=== PATIENT | female | born 1940 | race Caucasian/White ===

== ENCOUNTER 2017-12-03 10:33 | Emergency (ER) | payer MEDICARE, BC ==
[~2017-12-03] VITALS: Ht 160 cm; Wt 88.6 kg
[2017-12-03 10:34] VITALS: BP 174/97
[2017-12-03] MEDS ORDERED: NAPR-56 PO (12:17)
[2017-12-03] MEDS ORDERED: ketorolac trometh inj. 60 MG/2 ML VIAL IM ONE (12:20)
== END 2017-12-03 12:41 | disposition home or self-care (01) ==
LOC: ER 10:34
DX: M17.11 Unilateral primary osteoarthritis, right knee (principal); M19.90 Unspecified osteoarthritis, unspecified site; Z88.2 Allergy status to sulfonamides; Z88.8 Allergy status to other drugs, medicaments and biological substances; Z88.6 Allergy status to analgesic agent; Z91.013 Allergy to seafood
CPT/HCPCS: 73564; 96372; 99284; J1885

== ENCOUNTER 2020-08-25 12:23 | Emergency (ER) | payer MEDICARE, BC ==
[~2020-08-25] VITALS: Ht 160 cm; Wt 88.6 kg
[~2020-08-25 12:23] MED LIST: APIX5TAB3 PO; ATOR20TA66 PO; LEVO125T PO; METO100T14 PO
[2020-08-25] MEDS ORDERED: ketorolac tromethamine 15mg/ml inj. IV ONE (13:00)
[2020-08-25] MEDS ORDERED: morphine 4 MG/ML inj SYRINge IV ONE (13:00)
[2020-08-25] MEDS ORDERED: ondansetron/PF 4mg/2ml inj IV ONE (13:00)
[2020-08-25 13:32] LABS: BASOPHILS % (AUTO) 0.5 % (0-1); EOSINOPHILS # (AUTO) 0.2 X10'3 (0-0.9); EOSINOPHILS % (AUTO) 2.3 % (0-6); HEMATOCRIT 36.8 % (35.0-45.0); HEMOGLOBIN 12.2 g/dl (12.0-16.0); LYMPHOCYTES # (AUTO) 1.4 X10'3 (1.1-4.8); LYMPHOCYTES % (AUTO) 17.9 % (21-51); MEAN CORPUSCULAR HGB CONC 33.2 g/dL (33.0-36.5); MEAN CORPUSCULAR VOLUME 90.5 FL (78-98); MEAN PLATELET VOLUME 8.2 FL (7.4-10.4); MONOCYTES # (AUTO) 0.4 X10'3 (0-0.9); MONOCYTES % (AUTO) 4.6 % (2-12); NEUTROPHILS % (AUTO) 74.7 % (42-75); PLATELET COUNT 241 X10'3 (140-440); RED BLOOD COUNT 4.06 X10'6 (4.20-5.60); RED CELL DISTRIBUTION WIDTH 15.1 % (11.5-14.5)
[2020-08-25 13:45] LABS: PARTIAL THROMBOPLASTIN TIME 29 SECONDS (22-32)
[2020-08-25 13:49] LABS: ALANINE AMINOTRANSFERASE 22 U/L (12-78); ALBUMIN 3.7 G/DL (3.4-5.0); ALKALINE PHOSPHATASE 63 IU/L (46-116); ANION GAP 9 (8-16); ASPARTATE AMINO TRANSFERASE 18 U/L (10-37); BILIRUBIN,TOTAL 0.4 MG/DL (0.1-1.0); BLOOD UREA NITROGEN 15 MG/DL (7-18); BUN/CREATININE RATIO 22.1 (6.6-38.0); C-REACTIVE PROTEIN 0.21 MG/DL (0.0-0.5); CALCIUM 8.7 MG/DL (8.5-10.1); CHLORIDE 102 MMOL/L (99-107); CREATININE 0.68 MG/DL (0.40-0.90); GLUCOSE 92 MG/DL (70-104); POTASSIUM 3.9 MMOL/L (3.5-5.1); SODIUM 137 MMOL/L (135-145); TOTAL CARBON DIOXIDE 25.8 MMOL/L (24-32); TOTAL PROTEIN 7.4 G/DL (6.4-8.2); eGFR 83 ML/MIN
[2020-08-25 15:31] VITALS: BP 181/66
[2020-08-25] MEDS ORDERED: DOXYCYCLINE 100MG CAPSULE PO STA (16:26)
[2020-08-25] MEDS ORDERED: CEPH250T PO (16:28)
[2020-08-25] MEDS ORDERED: DOXY100C76 PO (16:28)
[2020-08-25] MEDS ORDERED: cephalexin 250mg capsule PO ONE (16:30)
== END 2020-08-25 17:18 | disposition home or self-care (01) ==
LOC: ER 12:23
DX: M25.561 Pain in right knee (principal); M25.461 Effusion, right knee; I48.91 Unspecified atrial fibrillation; I10 Essential (primary) hypertension; M19.90 Unspecified osteoarthritis, unspecified site; Z86.718 Personal history of other venous thrombosis and embolism; Z85.9 Personal history of malignant neoplasm, unspecified; Z98.890 Other specified postprocedural states; Z88.2 Allergy status to sulfonamides; Z88.5 Allergy status to narcotic agent; Z88.8 Allergy status to other drugs, medicaments and biological substances; Z91.013 Allergy to seafood; Z79.2 Long term (current) use of antibiotics; Z79.899 Other long term (current) drug therapy
CPT/HCPCS: 20610; 36415; 73560; 80053; 85025; 85610; 85651; 85730; 86140; 93971; 96374; 96375; 99285; J1885; J2270; J2405

== ENCOUNTER 2020-08-31 12:34 | Emergency (ER) | payer MEDICARE, BC ==
[~2020-08-31] VITALS: Ht 160 cm; Wt 89.5 kg
[~2020-08-31 12:34] MED LIST changes: +CEPH250T PO; +DOXY100C76 PO
[2020-08-31 16:01] LABS: BASOPHILS # (AUTO) 0.1 X10'3 (0-0.2); BASOPHILS % (AUTO) 0.7 % (0-1); EOSINOPHILS # (AUTO) 0.2 X10'3 (0-0.9); EOSINOPHILS % (AUTO) 2.2 % (0-6); HEMATOCRIT 38.4 % (35.0-45.0); HEMOGLOBIN 12.8 g/dl (12.0-16.0); LYMPHOCYTES # (AUTO) 1.7 X10'3 (1.1-4.8); LYMPHOCYTES % (AUTO) 19.4 % (21-51); MEAN CORPUSCULAR HEMOGLOBIN 29.8 PG (27.0-31.0); MEAN CORPUSCULAR HGB CONC 33.4 g/dL (33.0-36.5); MEAN CORPUSCULAR VOLUME 89.3 FL (78-98); MEAN PLATELET VOLUME 8.1 FL (7.4-10.4); MONOCYTES # (AUTO) 0.6 X10'3 (0-0.9); MONOCYTES % (AUTO) 6.3 % (2-12); NEUTROPHILS # (AUTO) 6.5 X10'3 (1.8-7.7); NEUTROPHILS % (AUTO) 71.4 % (42-75); PLATELET COUNT 240 X10'3 (140-440); RED CELL DISTRIBUTION WIDTH 14.9 % (11.5-14.5)
[2020-08-31 16:13] LABS: ALBUMIN 3.8 G/DL (3.4-5.0); ANION GAP 6 (8-16); BLOOD UREA NITROGEN 14 MG/DL (7-18); BUN/CREATININE RATIO 18.4 (6.6-38.0); C-REACTIVE PROTEIN 0.23 MG/DL (0.0-0.5); CALCIUM 9.1 MG/DL (8.5-10.1); CHLORIDE 104 MMOL/L (99-107); CREATININE 0.76 MG/DL (0.40-0.90); GLUCOSE 88 MG/DL (70-104); SODIUM 138 MMOL/L (135-145); TOTAL CARBON DIOXIDE 28.2 MMOL/L (24-32); eGFR 73 ML/MIN
[2020-08-31 17:32] LABS: TOTAL PROTEIN,SYNOVIAL FLUID 5.6 GM/DL
[2020-08-31 17:43] LABS: GLUCOSE,SYNOVIAL FLUID 58 MG/DL
[2020-08-31 18:04] LABS: APPEARANCE,SYNOVIAL FLUID BLOODY; COLOR,SYNOVIAL FLUID RED; SYN RBC 2700000 /CU MM (0); SYN WBC 5000 /CU MM (0-200); SYNOVIAL FLUID CRYSTALS QT NO CRYSTALS SEEN
[2020-08-31] MEDS ORDERED: WALKERFR (18:09)
--- NOTE | 2020-08-31 18:53 | NUR ---
PT UP FOR DISCHARGED . ALL VSS STABLE . PT REPORTS BEING COMFORTABLE . TECHS AT BEDSIDE PLACING KNEE BRACE NO CHANGES TO PREVIOUS ASSESSMENT ASIDE FROM PAIN MANGEMENT . 04/06
[2020-08-31 19:14] VITALS: BP 142/75
[2020-08-31] MEDS ORDERED: LIDOcaine 1% W/epiNEPHrine 1:200,000 10ml vial IJ ONE (22:50)
== END 2020-08-31 19:12 | disposition home or self-care (01) ==
LOC: ER 12:34
DX: M25.561 Pain in right knee (principal); M25.461 Effusion, right knee; I48.91 Unspecified atrial fibrillation; I10 Essential (primary) hypertension; M19.90 Unspecified osteoarthritis, unspecified site; Z86.718 Personal history of other venous thrombosis and embolism; Z85.9 Personal history of malignant neoplasm, unspecified; Z98.890 Other specified postprocedural states; Z88.2 Allergy status to sulfonamides; Z88.5 Allergy status to narcotic agent; Z91.013 Allergy to seafood; Z79.2 Long term (current) use of antibiotics; Z79.899 Other long term (current) drug therapy
CPT/HCPCS: 20610; 29505; 36415; 80048; 82945; 84157; 85025; 85651; 86140; 87070; 87075; 89051; 89060; 99285

== ENCOUNTER 2021-07-30 16:18 | Emergency (ER) | payer MEDICARE, BC ==
[~2021-07-30] VITALS: Ht 160 cm; Wt 88.6 kg
[~2021-07-30 16:18] MED LIST changes: -CEPH250T PO; -DOXY100C76 PO; +WALKERFR
[2021-07-30 16:25] VITALS: BP 97/58
[2021-07-30] MEDS ORDERED: ondansetron 4mg rapidly disintigrating tab PO ONE (17:10)
[2021-07-30] MEDS ORDERED: morphine 4 MG/ML inj SYRINge IM ONE (17:10)
--- NOTE | 2021-07-30 17:17 | NUR ---
PO MED GIVEN, IM GIVEN
[2021-07-30] MEDS ORDERED: HYDR-3965 PO (19:08)
[2021-07-30] MEDS ORDERED: ONDA4TAB12 PO (19:08)
== END 2021-07-30 19:28 | disposition home or self-care (01) ==
LOC: ER 16:18
DX: S42.215A Unspecified nondisplaced fracture of surgical neck of left humerus, initial encounter for closed fracture (principal); S00.83XA Contusion of other part of head, initial encounter; I48.91 Unspecified atrial fibrillation; I10 Essential (primary) hypertension; M19.90 Unspecified osteoarthritis, unspecified site; Z86.718 Personal history of other venous thrombosis and embolism; Z85.9 Personal history of malignant neoplasm, unspecified; Z88.2 Allergy status to sulfonamides; Z88.8 Allergy status to other drugs, medicaments and biological substances; Z91.013 Allergy to seafood; Z79.899 Other long term (current) drug therapy; W01.0XXA Fall on same level from slipping, tripping and stumbling without subsequent striking against object, initial encounter; Y93.01 Activity, walking, marching and hiking; Y92.89 Other specified places as the place of occurrence of the external cause; Y99.8 Other external cause status
CPT/HCPCS: 29105; 70450; 72125; 73030; 96372; 99284; J2270

== ENCOUNTER 2021-08-19 20:58 | Emergency (ER) | payer MEDICARE, BC ==
[~2021-08-19] VITALS: Ht 160 cm; Wt 94.2 kg
[~2021-08-19 20:58] MED LIST changes: +ONDA4TAB12 PO
[2021-08-19 21:18] VITALS: BP 205/74
[2021-08-19] MEDS ORDERED: morphine 4 MG/ML inj SYRINge IM ONE (21:55)
[2021-08-19] MEDS ORDERED: ondansetron 4mg rapidly disintigrating tab PO ONE ×2 (21:55→22:50)
[2021-08-19] MEDS ORDERED: ONDA4TAB12 PO (22:49)
[2021-08-19] MEDS ORDERED: HYDR-3965 PO (22:49)
[2021-08-19] MEDS ORDERED: HYDROcodone/acetaminophen 5mg/325mg tablet PO ONE (22:50)
== END 2021-08-19 23:09 | disposition home or self-care (01) ==
LOC: ER 20:59
DX: M25.512 Pain in left shoulder (principal); I48.91 Unspecified atrial fibrillation; I10 Essential (primary) hypertension; M19.90 Unspecified osteoarthritis, unspecified site; Z86.718 Personal history of other venous thrombosis and embolism; Z85.9 Personal history of malignant neoplasm, unspecified; Z98.890 Other specified postprocedural states; Z88.2 Allergy status to sulfonamides; Z88.5 Allergy status to narcotic agent; Z88.8 Allergy status to other drugs, medicaments and biological substances; Z91.013 Allergy to seafood; Z79.899 Other long term (current) drug therapy
CPT/HCPCS: 73030; 96372; 99284; J2270

== ENCOUNTER 2023-10-18 18:52 | Emergency (ER) | payer BC, MEDICARE ==
[~2023-10-18] VITALS: Ht 157.5 cm; Wt 84.1 kg
[~2023-10-18 18:52] MED LIST changes: +ONDA-243 PO; -ONDA4TAB12 PO
[2023-10-18 19:36] LABS: HEMOGLOBIN 12.7 g/dl (12.0-16.0); MEAN CORPUSCULAR VOLUME 94.7 FL (78-98); WHITE BLOOD COUNT 5.6 X10'3 (4.5-11.0)
[2023-10-18 19:37] LABS: BASOPHILS % (AUTO) 0.6 % (0-1); EOSINOPHILS # (AUTO) 0.2 X10'3 (0-0.9); EOSINOPHILS % (AUTO) 4.3 % (0-6); HEMATOCRIT 37.6 % (35.0-45.0); LYMPHOCYTES # (AUTO) 1.3 X10'3 (1.1-4.8); LYMPHOCYTES % (AUTO) 23.6 % (21-51); MEAN CORPUSCULAR HEMOGLOBIN 32.1 PG (27.0-31.0); MEAN CORPUSCULAR HGB CONC 33.9 g/dL (33.0-36.5); MEAN PLATELET VOLUME 8.9 FL (7.4-10.4); MONOCYTES # (AUTO) 0.4 X10'3 (0-0.9); NEUTROPHILS # (AUTO) 3.6 X10'3 (1.8-7.7); NEUTROPHILS % (AUTO) 64.5 % (42-75); PLATELET COUNT 181 X10'3 (140-440); RED BLOOD COUNT 3.97 X10'6 (4.20-5.60); RED CELL DISTRIBUTION WIDTH 14.6 % (11.5-14.5)
[2023-10-18] MEDS: ondansetron/PF 4mg/2ml inj IV ONE (19:41)
[2023-10-18 19:44] LABS: APTT 36 SECONDS (22-32); INR 2.8 INR; PROTHROMBIN TIME 28.2 SECONDS (9.0-12.0)
[2023-10-18 19:46] LABS: ALANINE AMINOTRANSFERASE 26 U/L (12-78); ALBUMIN 3.8 G/DL (3.4-5.0); ALKALINE PHOSPHATASE 51 IU/L (46-116); ANION GAP 8 (8-16); ASPARTATE AMINO TRANSFERASE 28 U/L (10-37); BILIRUBIN,TOTAL 0.4 MG/DL (0.1-1.0); BLOOD UREA NITROGEN 11 MG/DL (7-18); BUN/CREATININE RATIO 14.1 (10.0-20.0); CALCIUM 8.8 MG/DL (8.5-10.1); CHLORIDE 101 MMOL/L (99-107); CREATININE 0.78 MG/DL (0.40-0.90); GLUCOSE 103 MG/DL (70-104); POTASSIUM 3.9 MMOL/L (3.5-5.1); SODIUM 139 MMOL/L (135-145); TOTAL CARBON DIOXIDE 30.3 MMOL/L (24-32); TOTAL PROTEIN 7.5 G/DL (6.4-8.2); eCRCL 42 ML/MIN; eGFR 70 ML/MIN
[2023-10-18] MEDS: levetiracetam inj 1,000 MG in normal saline 100ml IV soln 100 ML IV ONE (19:52)
[2023-10-18] MEDS: HYDROmorphone 1 mg/ml syringe IM ONE (19:56)
[2023-10-18] MEDS: HYDROmorphone 1 mg/ml syringe IV ONE (19:58)
[2023-10-18] MEDS ORDERED: levetiracetam inj 1,000 MG in normal saline 100ml IV soln 100 ML IV SCH (20:00)
[2023-10-18] MEDS: niCARDipine-NS 40mg/200ml IVPB 200 ML IV ONE (20:01)
[2023-10-18] MEDS: phytonadione inj. 10 MG in normal saline 100ml IV soln 100 ML IV ONE (20:07)
[2023-10-18] MEDS ORDERED: ROSU10TA72 PO (20:08)
[2023-10-18] MEDS ORDERED: LEVO125T8 PO (20:08)
[2023-10-18] MEDS ORDERED: WARF-55 PO (20:08)
[2023-10-18] MEDS: HUM PROTHROMB CPLX-LANS 2,000 UNIT in IV piggyback 80 ML IV ONE (20:32)
[2023-10-18 21:47] VITALS: BP 146/59; PULSE 62; RESP 18; TEMP 98.4; O2SAT 96
== END 2023-10-18 21:10 | disposition short-term general hospital (02) ==
LOC: ER 18:53
DX: I61.8 Other nontraumatic intracerebral hemorrhage (principal); I48.91 Unspecified atrial fibrillation; I10 Essential (primary) hypertension; M19.90 Unspecified osteoarthritis, unspecified site; I63.9 Cerebral infarction, unspecified; Z88.2 Allergy status to sulfonamides; Z88.8 Allergy status to other drugs, medicaments and biological substances; Z91.013 Allergy to seafood; Z79.899 Other long term (current) drug therapy; Z79.01 Long term (current) use of anticoagulants; Z98.890 Other specified postprocedural states; Z86.718 Personal history of other venous thrombosis and embolism; Z85.89 Personal history of malignant neoplasm of other organs and systems
CPT/HCPCS: 36415; 70450; 71045; 80053; 82948; 85025; 85610; 85730; 93005; 96365; 96366; 96368; 96375; 99291; C9132; J1170; J1953; J2405; J3430; J3490; J7168